=== PATIENT | male | born 1940 | race Caucasian/White ===

== ENCOUNTER 2023-09-24 09:50 | Emergency (ER) | payer MEDICARE ==
[~2023-09-24] VITALS: Ht 182.9 cm; Wt 82.6 kg
[2023-09-24 10:28] LABS: BASOPHILS # (AUTO) 0.06 K/uL (0.00-0.20); BASOPHILS % (AUTO) 1.3 % (0.0-5.0); EOSINOPHILS # (AUTO) 0.59 K/uL (0.00-0.70); HEMATOCRIT 40.7 % (42-54); IMMATURE GRANULOCYTE ABSOLUTE 0.01 K/uL (0-1); LYMPHOCYTES # (AUTO) 1.6 K/uL (1.0-4.8); MEAN CORPUSCULAR HEMOGLOBIN 31.3 pg (27.0-33.0); MEAN CORPUSCULAR HGB CONC 33.4 g/dL (32.0-36.0); MEAN CORPUSCULAR VOLUME 93.6 fL (79-99); MONOCYTES # (AUTO) 0.5 K/uL (0.1-1.0); MONOCYTES % (AUTO) 10.1 % (3.0-13.0); NEUTROPHILS # (AUTO) 1.8 K/uL (1.8-7.7); NEUTROPHILS % (AUTO) 39.4 % (40.0-77.0); PLATELET COUNT (AUTO) 226 K/uL (130-400); RED BLOOD CELL COUNT(AUTO) 4.35 MIL/uL (4.50-6.20); RED CELL DISTRIBUTION WIDTH 12.7 % (11.0-15.5); WHITE BLOOD COUNT (AUTO) 4.6 K/uL (4.8-10.8)
[2023-09-24] MEDS: BENZONATATE 100 MG CAPSULE PO ONE (10:37)
[2023-09-24 10:38] LABS: CREATININE 0.9 mg/dL (0.5-1.5); POTASSIUM 3.9 mmol/L (3.5-5.1)
[2023-09-24] MEDS: ASPIRIN 325MG TAB PO ONE (10:38)
[2023-09-24] MEDS: NITROGLYCERIN 1GM OINT 1 INCH/1GM TD ONE (10:39)
[2023-09-24 10:42] LABS: ALBUMIN 3.4 g/dL (3.5-5.0); BILIRUBIN,TOTAL 0.7 mg/dL (0.2-1.0); TOTAL PROTEIN, SERUM 6.7 g/dL (6.0-8.3)
[2023-09-24 10:55] VITALS: PULSE 55; RESP 20
[2023-09-24] MEDS: ALBUTEROL 0.083% 2.5 MG/3 ML INH IH ONE (10:57)
[2023-09-24] MEDS ORDERED: LISI20TA24 PO (13:14)
[2023-09-24] MEDS ORDERED: ASPI-1005 PO (13:14)
[2023-09-24] MEDS ORDERED: ALBUHFA IH (13:14)
[2023-09-24 13:15] VITALS: BP 133/63; PULSE 62; RESP 20; O2SAT 99
[2023-09-24] MEDS ORDERED: AUD IH (13:19)
== END 2023-09-24 14:05 | disposition home or self-care (01) ==
LOC: EDH 09:50
DX: I11.0 Hypertensive heart disease with heart failure (principal); I50.9 Heart failure, unspecified; J45.909 Unspecified asthma, uncomplicated; Z90.49 Acquired absence of other specified parts of digestive tract; Z98.890 Other specified postprocedural states; Z85.46 Personal history of malignant neoplasm of prostate
CPT/HCPCS: 36415; 71045; 80053; 83880; 84153; 84484; 85025; 93005; 93306; 93356; 94640